=== PATIENT | female | born 1965 | race Caucasian/White ===

== ENCOUNTER 2016-09-01 13:54 | Emergency (ER) | payer MEDICAID ==
[2016-09-01 15:04] VITALS: BP 111/67
--- NOTE | 2016-09-01 15:37 | EDM.PDOC ---
ED HPI Trauma - General Chief Complaint: Upper Extremity Injury/Pain Stated Complaint: [id number] SHOULDER PAIN AND SIDE CHEST SINCE CHIR Time Seen by Provider: 09/01/16 15:37 Source: Reports: Patient, RN, RN notes reviewed History Limitations: Reports: No limitations - History of Present Illness INITIAL COMMENTS - FREE TEXT/NARRATIVE: Complaining of pain to right ribs/chest wall that began 08/24/16 when her chiropractor "popped" her right shoulder. Pain is worse with deep breath and some motion. Right shoulder abduction also increased pain. Denies cough, SOB, fever or chills. Occurred Where: other Severity: moderate Pain/Injury Location: Reports: chest Associated Symptoms: Reports: no other symptoms Allergies/ADRs: Allergies codeine Allergy (Verified 09/01/16 15:06) Cannot Remember Home Medications: Ambulatory Orders Acetaminophen [Tylenol] 650 mg PO BID 09/01/16 [Confirmed 09/01/16] Past Medical History - Past Health History Medical/Surgical History: Denies Medical/Surgical History HEENT History: 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 Cardiovascular History: 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 Respiratory History: 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 Gastrointestinal History: 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 Genitourinary History: Reports: Renal calculus 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: 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 Musculoskeletal History: 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 Neurological History: 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 Psychiatric History: 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 Endocrine/Metabolic History: 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 Hematologic History: 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 Immunologic History: 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 Oncologic (Cancer) History: 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 Dermatologic History: 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 - Infectious Disease History Infectious Disease History: 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 - Past Surgical History Head Surgeries/Procedures: 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 Social & Family History - Family History Family Medical History: Noncontributory - Tobacco Use Smoking Status *Q: Current Every Day Smoker Years of Tobacco use: 20 Packs/Tins Daily: 0.1 Used Tobacco, but Quit: No Month Tobacco Last Used: october Second Hand Smoke Exposure: Yes - Caffeine Use Caffeine Use: Reports: Coffee, Soda, Tea - Alcohol Use Days Per Week of Alcohol Use: 0 - Recreational Drug Use Recreational Drug Use: No - Living Situation & Occupation Living situation: Reports: with family Occupation: employed Review of Systems - Review of Systems Review Of Systems: ROS reveals no pertinent complaints other than HPI. Trauma Exam - Physical Exam Exam: See Below Exam Limited By: No limitations General Appearance: Reports: alert, WD/WN, no apparent distress Neck: Reports: full range of motion Respiratory Exam: Reports: other (decreased breathsounds in bilateral bases. Tender at right anterior lateral mid-ribs. No visibble sweling or bruising. 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 Departure - Departure Time of Disposition: 16:20 Disposition: Home, Self-Care 01 Condition: good Clinical Impression: Costochondritis Chest wall injury Qualifiers: Encounter type: initial encounter Qualified Code(s): S29.9XXA - Unspecified injury of thorax, initial encounter Instructions: Costochondritis, [id number] Forms: ED Department Discharge Additional Instructions: Tramadol 50mg. Naprosyn 500mg. Activity as tolerated. Follow up in clinic in 3 days, if not improving.
--- NOTE | 2016-09-01 16:13 | CR ---
Clinical history: 51-year-old female right chest wall and rib pain (injury). Interpretation: Subtle deformity lower lateral right hemithorax was evident back on 23 August 2014. Mild thoracolumbar scoliosis. No sign of pathologic skeletal lesion, acute right rib fracture, underlying lung contusion, atelecta sis or dependent pleural effusion on the right. No pneumothorax.
== END 2016-09-01 16:30 | disposition home or self-care (01) ==
LOC: DL.ED 13:54
DX: S29.9XXA Unspecified injury of thorax, initial encounter (principal); M94.0 Chondrocostal junction syndrome [Tietze]; F17.210 Nicotine dependence, cigarettes, uncomplicated; Z88.5 Allergy status to narcotic agent; X58.XXXA Exposure to other specified factors, initial encounter
CPT/HCPCS: 71100-RT; 99284

== ENCOUNTER 2017-05-30 18:08 | Emergency (ER) | payer MEDICAID ==
[2017-05-30] MEDS ORDERED: GI Cocktail Oral Solution 30 ML PO ONE (18:09)
[2017-05-30 18:23] VITALS: BP 127/75
[2017-05-30] MEDS ORDERED: Sodium Chloride 0.9% 10 ML Syringe FLUSH PRN (18:29)
[2017-05-30] MEDS ORDERED: Sodium Chloride 0.9% 1,000 ML IV ONE (18:29)
[2017-05-30] MEDS ORDERED: Ondansetron 4 MG/2 ML SDV IV ONE (18:29)
--- NOTE | 2017-05-30 18:34 | EDM.PDOC ---
<Shantelle Soto - Last Filed: 05/30/17 18:29> ED HPI GENERAL MEDICAL PROBLEM - General Chief Complaint: General Stated Complaint: VOMITING Time Seen by Provider: 05/30/17 18:24 Source of Information: Reports: Patient, RN, RN Notes Reviewed History Limitations: Reports: No Limitations - History of Present Illness INITIAL COMMENTS - FREE TEXT/NARRATIVE: Patient presents to the ER with complaint of vomiting white foam for 2 days. Has tried saltines, water, sprite--not able to keep down. She has had chills and runny nose. No fevers, diarrhea, chest pain, shortness of breath and cough. Duration: Constant Location: Reports: Abdomen Quality: Reports: Ache Severity: Moderate Improves with: 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 Worsens with: 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 Associated Symptoms: Reports: No Other Symptoms Abdomen Pain Score (Numeric/FACES): 3 - Related Data Allergies Allergy/AdvReac Type Severity Reaction Status Date / Time codeine Allergy Drowsiness Verified 05/30/17 18:14 Home Meds: Home Meds Acetaminophen [Tylenol] 650 mg PO BID 09/01/16 [History] Past Medical History - Past Health History Medical/Surgical History: Denies Medical/Surgical History HEENT History: 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 Cardiovascular History: 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 Respiratory History: 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 Gastrointestinal History: 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 Genitourinary History: Reports: Renal Calculus 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 Musculoskeletal History: Reports: Back Pain, Chronic Neurological History: 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 Psychiatric History: 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 Endocrine/Metabolic History: 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 Hematologic History: 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 Immunologic History: 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 Oncologic (Cancer) History: 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 Dermatologic History: 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 - Infectious Disease History Infectious Disease History: 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 - Past Surgical History Head Surgeries/Procedures: 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 Social & Family History - Family History Family Medical History: Noncontributory - Tobacco Use Smoking Status *Q: Current Every Day Smoker Years of Tobacco use: 30 Packs/Tins Daily: 0.5 Used Tobacco, but Quit: No Month Tobacco Last Used: october Second Hand Smoke Exposure: Yes - Caffeine Use Caffeine Use: Reports: Soda - Alcohol Use Days Per Week of Alcohol Use: 0 - Recreational Drug Use Recreational Drug Use: No - Living Situation & Occupation Living situation: Reports: with Family Occupation: Employed ED ROS GENERAL - Review of Systems Review Of Systems: ROS reveals no pertinent complaints other than HPI. ED EXAM, GENERAL - Physical Exam Exam: See Below Exam Limited By: No Limitations General Appearance: Other (pale) Eye Exam: Bilateral Eye: Normal Inspection Ears: Normal External Exam, Normal Canal, Hearing Grossly Normal, Normal TMs Nose: Normal Inspection, Normal Mucosa, No Blood Throat/Mouth: Normal Inspection, Normal Lips, Normal Teeth, Normal Gums, Normal Oropharynx, Normal Voice, No Airway Compromise Head: Atraumatic, Normocephalic Neck: Normal Inspection, Supple, Non-Tender, Full Range of Motion Respiratory/Chest: Other (lung sounds diminished) Cardiovascular: Normal Peripheral Pulses, Regular Rate, Rhythm, No Edema, No Gallop, No JVD, No Murmur, No Rub GI/Abdominal: Other (epigastric tenderness) (Female) Exam: Deferred Rectal (Female) Exam: Deferred Back Exam: Normal Inspection, Full Range of Motion, NT Extremities: Normal Inspection, Normal Range of Motion, Non-Tender, Normal Capillary Refill, No Pedal Edema Neurological: Alert, Oriented, CN II-XII Intact, Normal Cognition, Normal Gait, Normal Reflexes, No Motor/Sensory Deficits Psychiatric: Normal Affect, Normal Mood Skin Exam: Other (pale) Lymphatic: No Adenopathy Course - Vital Signs Last Recorded V/S: Last Vital Signs Temp 36.7 C 05/30/17 18:16 Pulse 98 05/30/17 18:16 Resp 18 05/30/17 18:16 BP 127/75 05/30/17 18:16 Pulse Ox 100 05/30/17 18:16 - Orders/Labs/Meds Orders: Active Orders 24 hr Category Date Time Status Peripheral IV Care [RC] . DIRECTED Care 05/30/17 18:29 Active Sodium Chloride 0.9% [Saline Flush] Med 05/30/17 18:29 Active 10 ml FLUSH ASDIRECTED PRN Peripheral IV Insertion Adult [OM.PC] Stat Oth 05/30/17 18:29 Ordered Medication Orders Sodium Chloride (Saline Flush) 10 ml FLUSH ASDIRECTED PRN PRN Reason: Keep Vein Open Last Admin: 05/30/17 18:37 Dose: 10 ml Labs: Laboratory Tests 05/30/17 05/30/17 05/30/17 Range/Units 18:55 18:55 18:55 WBC 10.2 H (5.0-10.0) 10^3/uL RBC 4.29 (4.2-5.4) 10^6/uL Hgb 13.2 (12.0-16.0) g/dL Hct 40.4 (37.0-47.0) % MCV 94.2 (80-100) fL MCH 30.8 (27.0-34.0) pg MCHC 32.7 L (33.0-35.0) g/dL Plt Count 309 (150-450) 10^3/uL Neut % (Auto) 62.3 (42.2-75.2) % Lymph % (Auto) 28.2 (20.5-50.1) % [place] % (Auto) 7.8 (2-8) % Eos % (Auto) 1.3 (1.0-3.0) % Baso % (Auto) 0.4 (0.0-1.0) % Sodium 141 (135-145) mmol/L Potassium 3.8 (3.6-5.0) mmol/L Chloride 106 (101-111) mmol/L Carbon Dioxide 24.0 (21.0-31.0) mmol/L Anion Gap 14.8 BUN 20 H (7-18) mg/dL Creatinine 0.5 L (0.6-1.3) mg/dL Est Cr Clr Drug Dosing 122.52 mL/min Estimated GFR (MDRD) > 60 BUN/Creatinine Ratio 40.00 Glucose 161 H (74-105) mg/dL Lactic Acid 2.3 H (0.5-2.2) mmol/L Calcium 9.4 (8.4-10.2) mg/dl Total Bilirubin 0.7 (0.2-1.0) mg/dL AST 24 (10-42) IU/L ALT 20 (10-60) IU/L Alkaline Phosphatase 70 (42-121) IU/L Total Protein 7.7 (6.7-8.2) g/dl Albumin 4.2 (3.2-5.5) g/dl Globulin 3.5 Albumin/Globulin Ratio 1.20 Amylase 125 H (28-100) U/L Lipase 22 (22-51) U/L Meds: Medications Generic Name Dose Route Start Last Admin Trade Name Freq PRN Reason Stop Dose Admin Sodium Chloride 10 ml 05/30/17 18:29 05/30/17 18:37 Saline Flush FLUSH 10 ml ASDIRECTED PRN Administration Keep Vein Open Discontinued Medications Generic Name Dose Route Start Last Admin Trade Name Petra PRN Reason Stop Dose Admin Sodium Chloride 1,000 mls @ 999 mls/hr 05/30/17 18:29 05/30/17 18:36 Normal Saline IV 05/30/17 19:29 999 mls/hr .BOLUS ONE Administration Ondansetron HCl 4 mg 05/30/17 18:29 05/30/17 18:36 Zofran IV 05/30/17 18:30 4 mg ONETIME ONE Administration Pantoprazole Sodium 40 mg 05/30/17 19:55 05/30/17 20:10 Protonix Iv IVPUSH 05/30/17 19:56 40 mg ONETIME ONE Administration Departure - Departure Disposition: Against Medical Advice 07 Clinical Impression: Esophagitis Barretts esophagus Qualifiers: 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 05/30/17 20:56 re-exam; unable to swallow water since it won't go all the way down it gets stuck in lower oesophagus and comes back up. GI didn't get all the way down either. 05/30/17 21:[address] Covarrubias @ who kindly accepted pt but pt changed her mind and wants to leave AM but would like some GI cocktail to go. pt states has to take daughter to [place] for kidney transplant and nobody can care for her. advised pt to return if things get worse. Departure - Departure Time of Disposition: 21:23 Condition: Good
[2017-05-30 19:36] LABS: ANION GAP 14.8; CHLORIDE,CL 106 mmol/L (101-111); SODIUM,NA 141 mmol/L (135-145)
[2017-05-30] MEDS ORDERED: Pantoprazole 40 MG Vial IVPUSH ONE (19:55)
[2017-05-30] MEDS ORDERED: GI Cocktail Oral Solution 30 ML ONE (21:21)
== END 2017-05-30 21:27 | disposition left against medical advice (07) ==
LOC: DL.ED 18:08
DX: K22.719 Barrett's esophagus with dysplasia, unspecified (principal); K20.9 Esophagitis, unspecified; F17.210 Nicotine dependence, cigarettes, uncomplicated; Z88.5 Allergy status to narcotic agent
CPT/HCPCS: 36415; 74176; 80053; 82150; 83605; 83690; 85025; 99284; C9113; J2405; J7030; J7050; 96361; 96374; A9270-GY

== ENCOUNTER 2017-10-31 19:39 | Emergency (ER) | payer MEDICAID ==
[2017-10-31 21:14] VITALS: BP 119/79
--- NOTE | 2017-10-31 21:22 | EDM.PDOC ---
ED HPI GENERAL MEDICAL PROBLEM - General Chief Complaint: Chest Pain Stated Complaint: RT SIDE,?CRACKED RIB Time Seen by Provider: 10/31/17 20:25 Source of Information: Reports: Patient History Limitations: Reports: No Limitations - History of Present Illness INITIAL COMMENTS - FREE TEXT/NARRATIVE: right lower rib pain, states hx 2 weeks ago told had cracked ribat clinic. Tonight reaching over arm of couch and felt pop in right lower rib. Discomfort with movement. No difficultly breathing. Right Thoracic Pain Score (Numeric/FACES): 7 - Related Data Allergies Allergy/AdvReac Type Severity Reaction Status Date / Time codeine Allergy Drowsiness Verified 10/31/17 20:07 Home Meds: Home Meds . 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 Musculoskeletal History: Reports: Back Pain, Chronic Neurological History: 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 Psychiatric History: 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 Endocrine/Metabolic History: 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 Hematologic History: 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 Immunologic History: 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 Oncologic (Cancer) History: 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 Dermatologic History: 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 - Infectious Disease History Infectious Disease History: 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 - Past Surgical History Head Surgeries/Procedures: 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 Social & Family History - Family History Family Medical History: Noncontributory - Tobacco Use Smoking Status *Q: Current Every Day Smoker Years of Tobacco use: 39 Packs/Tins Daily: 0.2 Second Hand Smoke Exposure: Yes - Caffeine Use Caffeine Use: Reports: Soda - Recreational Drug Use Recreational Drug Use: No - Living Situation & Occupation Living situation: Reports: with Family Occupation: Employed ED ROS GENERAL - Review of Systems Review Of Systems: ROS reveals no pertinent complaints other than HPI. ED EXAM, GENERAL - Physical Exam Exam: See Below Exam Limited By: No Limitations General Appearance: Alert, No Apparent Distress Eye Exam: Bilateral Eye: EOMI Ears: Normal External Exam Nose: Normal Inspection Throat/Mouth: Normal Inspection Head: Atraumatic, Normocephalic Respiratory/Chest: No Respiratory Distress, Lungs Clear, Normal Breath Sounds, Other (mild tenderness right lower ribs mid axillary line, no bruising or swelling to area). No: Respiratory Distress, Crackles, Rales, Rhonchi, Wheezing Cardiovascular: Normal Peripheral Pulses, Regular Rate, Rhythm GI/Abdominal: Soft Back Exam: Normal Inspection, Paraspinal Tenderness (mid thoracic) Extremities: Normal Range of Motion Neurological: Alert, Oriented, Normal Cognition Psychiatric: Normal Affect Skin Exam: Warm, Dry, Intact, Normal Color Course - Vital Signs Last Recorded V/S: Last Vital Signs Temp 99.1 F 10/31/17 20:02 Pulse 90 10/31/17 21:13 Resp 16 10/31/17 21:13 BP 119/79 10/31/17 21:13 Pulse Ox 98 10/31/17 21:13 Departure - Departure Time of Disposition: 21:20 Disposition: Home, Self-Care 01 Condition: Good Clinical Impression: Rib pain on right side - Discharge Information Instructions: Rib Contusion Referrals: Katya Hooks MD [Primary Care Provider] - Forms: ED Department Discharge Additional Instructions: splint area with cough or sneeze deep breathing exercises every hour while awake alternate tylenol 650mg and ibuprofen 600mg every 4 hours as needed for discomfort
== END 2017-10-31 21:27 | disposition home or self-care (01) ==
LOC: DL.ED 19:39
DX: R07.81 Pleurodynia (principal); F17.210 Nicotine dependence, cigarettes, uncomplicated; Z88.5 Allergy status to narcotic agent
CPT/HCPCS: 71101-RT; 99283

== ENCOUNTER 2019-07-01 12:23 | Emergency (ER) | payer SELFPAY ==
[2019-07-01 13:07] VITALS: BP 111/69; PULSE 83
--- NOTE | 2019-07-01 14:03 | EDM.PDOC ---
Scribed by So White 07/01/19 [id number] for Shakir Bernal MD ED HPI GENERAL MEDICAL PROBLEM - General Chief Complaint: Upper Extremity Injury/Pain Stated Complaint: LEFT SIDE PAINS,COUGHING Time Seen by Provider: 07/01/19 13:15 Source of Information: Reports: Patient, RN, RN Notes Reviewed History Limitations: Reports: No Limitations - History of Present Illness INITIAL COMMENTS - FREE TEXT/NARRATIVE: Patient presents to ER with pain to left chest wall. She has had a cough for 2 months. Saw doctor for cough and cold and was treated with 2 antibiotics over the span of a month. She denies fever or chills. Admits to wheezing, and occasional brown sputum production. She quit smoking 1 month ago. 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 Onset: Gradual Duration: Getting Worse Quality: Reports: Ache Severity: Mild Improves with: 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 Worsens with: 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 Associated Symptoms: Reports: No Other Symptoms Chest Pain Score (Numeric/FACES): 8 - Related Data Allergies Allergy/AdvReac Type Severity Reaction Status Date / Time codeine Allergy Drowsiness Verified 01/25/18 06:28 peach flavor Allergy Hives Uncoded 01/25/18 06:28 Home Meds: Home Meds Acetaminophen 500 - 1,000 mg PO QID PRN 01/25/18 [History] Albuterol [Proventil HFA] 1 - 2 puff INH Q6H PRN 01/25/18 [History] Alendronate Sodium [Fosamax] 70 mg PO Q7D 01/25/18 [History] Glimepiride [Amaryl] 2 mg PO ASDIRECTED 01/25/18 [History] Ibuprofen [Ibu] 800 mg PO Q8H PRN 01/25/18 [History] atorvaSTATin [Lipitor] 20 mg PO DAILY 01/25/18 [History] buPROPion [buPROPion XL] 150 mg PO DAILY 01/25/18 [History] Past Medical History - Past Health History Medical/Surgical History: Denies Medical/Surgical History HEENT History: Reports: Hard of Hearing Cardiovascular History: Reports: High Cholesterol Respiratory History: 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 Gastrointestinal History: 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 Genitourinary History: Reports: Renal Calculus, Urinary Incontinence 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 Musculoskeletal History: Reports: Arthritis, Back Pain, Chronic, Osteoporosis Neurological History: 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 Psychiatric History: Reports: Other (See Below) Other Psychiatric History: TOBACCO HABITUATION Endocrine/Metabolic History: Reports: Diabetes, Type II Hematologic History: 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 Immunologic History: 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 Oncologic (Cancer) History: 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 Dermatologic History: 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 - Infectious Disease History Infectious Disease History: 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 - Past Surgical History Head Surgeries/Procedures: 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 HEENT Surgical History: Reports: Myringotomy w Tube(s) Female Surgical History: Reports: D&C Social & Family History - Family History Family Medical History: Noncontributory - Tobacco Use Smoking Status *Q: Former Smoker Used Tobacco, but Quit: Yes Month/Year Tobacco Last Used: 05/2019 - Caffeine Use Caffeine Use: Reports: Coffee - Recreational Drug Use Recreational Drug Use: No - Living Situation & Occupation Living situation: Reports: with Family Occupation: Employed ED ROS GENERAL - Review of Systems Review Of Systems: Comprehensive ROS is negative, except as noted in HPI. ED EXAM, GENERAL - Physical Exam Exam: See Below Exam Limited By: No Limitations General Appearance: Alert, WD/WN, No Apparent Distress Nose: Normal Inspection Throat/Mouth: Normal Inspection Head: Atraumatic, Normocephalic Neck: Normal Inspection, Supple, Non-Tender, Full Range of Motion. No: Lymphadenopathy (L), Lymphadenopathy (R) Respiratory/Chest: No Respiratory Distress, No Accessory Muscle Use, Decreased Breath Sounds, Wheezing (mild), Other (Left lateral mid-to lower chest wall tenderness with no visible bruising, swelling, or deformity. No palpable crepitus.) Cardiovascular: Regular Rate, Rhythm GI/Abdominal: Normal Bowel Sounds, Soft, Non-Tender Back Exam: Normal Inspection, Full Range of Motion Extremities: Normal Inspection, No Pedal Edema Neurological: Alert, Oriented, No Motor/Sensory Deficits Psychiatric: Normal Mood Skin Exam: Warm, Dry, Intact, Normal Color, No Rash Course - Vital Signs Last Recorded V/S: Last Vital Signs Temp 99.3 F 07/01/19 13:05 Pulse 83 07/01/19 13:05 Resp 20 07/01/19 13:05 BP 111/69 07/01/19 13:05 Pulse Ox 97 07/01/19 13:05 - Orders/Labs/Meds Orders: Active Orders 24 hr Category Date Time Status Chest 2V [CR] Stat Exams 07/01/19 13:16 Taken Ribs 2V wo Chest Lt [CR] Urgent Exams 07/01/19 13:16 Taken Labs: Laboratory Tests 07/01/19 07/01/19 Range/Units 13:23 13:23 WBC 12.3 H (5.0-10.0) 10^3/uL RBC 4.33 (4.2-5.4) 10^6/uL Hgb 13.7 (12.0-16.0) g/dL Hct 41.0 (37.0-47.0) % MCV 94.7 (80-100) fL MCH 31.6 (27.0-34.0) pg MCHC 33.4 (33.0-35.0) g/dL Plt Count 290 (150-450) 10^3/uL Neut % (Auto) 75.0 (42.2-75.2) % Lymph % (Auto) 16.3 L (20.5-50.1) % [place] % (Auto) 7.2 (2-8) % Eos % (Auto) 1.3 (1.0-3.0) % Baso % (Auto) 0.2 (0.0-1.0) % C-Reactive Protein 2.6 H (0.0-1.3) mg/dL Departure - Departure Time of Disposition: 13:55 Disposition: Home, Self-Care 01 Condition: Good Clinical Impression: Chest wall pain, Pleurisy without effusion - Discharge Information *PRESCRIPTION DRUG MONITORING PROGRAM REVIEWED*: No *COPY OF PRESCRIPTION DRUG MONITORING REPORT IN PATIENT RAE: No Instructions: Chest Wall Pain, [id number], Pleurisy Forms: ED Department Discharge Additional Instructions: Rx: [place] (Hydrocodone) 5mg/325mg *Do not drive while under the influence of this medication. Use a stool softener while taking this medication. Rx: Decadron (Dexamethasone) 4mg Rx: Albuterol Inhaler Follow up in clinic in 1 week if not improving as expected. Sepsis Event Note - Evaluation Sepsis Screening Result: No Definite Risk - Focused Exam Vital Signs: Vital Signs Temp Pulse Resp BP Pulse Ox 07/01/19 13:05 99.3 F 83 20 111/69 97 Date Exam was Performed: 07/01/19 Time Exam was Performed: 13:58 - My Orders Last 24 Hours: My Active Orders 07/01/19 13:16 Chest 2V [CR] Stat Ribs 2V wo Chest Lt [CR] Urgent - Assessment/Plan Last 24 Hours: My Active Orders 07/01/19 13:16 Chest 2V [CR] Stat Ribs 2V wo Chest Lt [CR] Urgent I have read and agree with the documentation that has been completed regarding this visit. By signing this record, I attest that the documentation was completed in my physical presence and is an accurate record of the encounter.
== END 2019-07-01 14:02 | disposition home or self-care (01) ==
LOC: DL.ED 12:23
DX: R09.1 Pleurisy (principal); E78.00 Pure hypercholesterolemia, unspecified; E11.9 Type 2 diabetes mellitus without complications; Z88.5 Allergy status to narcotic agent; Z91.048 Other nonmedicinal substance allergy status; Z79.899 Other long term (current) drug therapy; Z79.84 Long term (current) use of oral hypoglycemic drugs; Z87.891 Personal history of nicotine dependence
CPT/HCPCS: 36415; 71046; 71100-LT; 85025; 86140; 99283; 99285-25

== ENCOUNTER 2019-09-01 12:49 | Emergency (ER) | payer OTHER ==
--- NOTE | 2019-09-01 12:39 | EDM.PDOC ---
ED HPI GENERAL MEDICAL PROBLEM - General Chief Complaint: Lower Extremity Injury/Pain Stated Complaint: ANKLE PAIN Time Seen by Provider: 09/01/19 12:55 Source of Information: Reports: Patient, EMS, RN, RN Notes Reviewed History Limitations: Reports: No Limitations - History of Present Illness INITIAL COMMENTS - FREE TEXT/NARRATIVE: Pt arrives from home by ambulance with c/o right ankle and right knee pain sustained from a ground level fall at work yesterday. Denies any other injury. Pt rates the pain 8/10. Nothing alleviates the pain. Ankle ROM or attempted wt bearing aggravates the pain. Onset: Sudden Onset Date: 08/31/19 Duration: Constant Location: Reports: Lower Extremity, Right Quality: Reports: Ache Severity: Severe Context: Reports: Other (Fall) Associated Symptoms: Reports: No Other Symptoms Right Ankle Pain Score (Numeric/FACES): 10 - Related Data Allergies Allergy/AdvReac Type Severity Reaction Status Date / Time codeine Allergy Drowsiness Verified 09/01/19 12:53 peach flavor Allergy Hives Uncoded 01/25/18 06:28 Home Meds: Home Meds Acetaminophen 500 - 1,000 mg PO QID PRN 01/25/18 [History] Albuterol [Proventil HFA] 1 - 2 puff INH Q6H PRN 01/25/18 [History] Alendronate Sodium [Fosamax] 70 mg PO Q7D 01/25/18 [History] Glimepiride [Amaryl] 2 mg PO ASDIRECTED 01/25/18 [History] Ibuprofen [Ibu] 800 mg PO Q8H PRN 01/25/18 [History] atorvaSTATin [Lipitor] 20 mg PO DAILY 01/25/18 [History] buPROPion [buPROPion XL] 150 mg PO DAILY 01/25/18 [History] Past Medical History - Past Health History Medical/Surgical History: Denies Medical/Surgical History HEENT History: Reports: Hard of Hearing Cardiovascular History: Reports: High Cholesterol Respiratory History: 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 Gastrointestinal History: 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 Genitourinary History: Reports: Renal Calculus, Urinary Incontinence BALLET DANCER History: 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 Musculoskeletal History: Reports: Arthritis, Back Pain, Chronic, Osteoporosis Neurological History: 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 Psychiatric History: Reports: Other (See Below) Other Psychiatric History: TOBACCO HABITUATION Endocrine/Metabolic History: Reports: Diabetes, Type II Hematologic History: 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 Immunologic History: 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 Oncologic (Cancer) History: 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 Dermatologic History: 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 - Infectious Disease History Infectious Disease History: 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 - Past Surgical History Head Surgeries/Procedures: 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 HEENT Surgical History: Reports: Myringotomy w Tube(s) Female Surgical History: Reports: D&C Social & Family History - Family History Family Medical History: Noncontributory - Tobacco Use Smoking Status *Q: Former Smoker Tobacco Use Within Last Twelve Months: Cigarettes - Caffeine Use Caffeine Use: Reports: Coffee - Living Situation & Occupation Living situation: Reports: with Family Occupation: Employed Review of Systems - Review of Systems Review Of Systems: Comprehensive ROS is negative, except as noted in HPI. ED EXAM, GENERAL - Physical Exam Exam: See Below Exam Limited By: No Limitations General Appearance: Alert, No Apparent Distress Head: Atraumatic, Normocephalic Neck: Normal Inspection, Non-Tender, Full Range of Motion Respiratory/Chest: No Respiratory Distress Cardiovascular: Normal Peripheral Pulses Back Exam: Normal Inspection, Full Range of Motion Extremities: No Pedal Edema, Normal Capillary Refill, Joint Swelling (Mild Rt ankle lateral soft tissue swelling and bruising.), Limited Range of Motion (Rt knee tender, faint anterior bruising, ROM limited due pain but mechanically intact). No: Ambika's Sign, Increased Warmth, Redness Neurological: Alert, Oriented, No Motor/Sensory Deficits Psychiatric: Normal Mood Skin Exam: Warm, Dry, Intact ED TRAUMA EXTREMITY PROCEDURES - Splinting Right Lower Extremity Splint Site: Rt ankle Pre-Procedure NV Status: Normal Post-Procedure NV Status: Normal Splint Material: Boot Orthotic Applied & Form Fitted By: Nurse Provider Post-Splint Application NV Check: NV Status Normal, Good Position Complications: No Course - Vital Signs Last Recorded V/S: Last Vital Signs Temp 98.9 F 09/01/19 12:50 Pulse 78 09/01/19 12:50 Resp 14 09/01/19 12:50 BP 96/77 09/01/19 12:50 Pulse Ox 99 09/01/19 12:50 - Orders/Labs/Meds Orders: Active Orders 24 hr Category Date Time Status Brian Bandage [RC] ONETIME Care 09/01/19 13:14 Ordered Ankle Min 3V Rt [CR] Urgent Exams 09/01/19 12:33 Taken DME for Discharge [COMM] Routine Oth 09/01/19 13:15 Ordered DME for Discharge [COMM] Routine Oth 09/01/19 13:15 Ordered - Radiology Interpretation Free Text/Narrative:: XR Right Ankle: no acute fractures, see Rad. report. XR Right Knee: no acute fracture, see Rad. report. Departure - Departure Time of Disposition: 13:23 Disposition: Home, Self-Care 01 Condition: Good Clinical Impression: Sprain of right ankle Qualifiers: Encounter type: initial encounter Involved ligament of ankle: unspecified ligament Qualified Code(s): S93.401A - Sprain of unspecified ligament of right ankle, initial encounter Sprain of right knee Qualifiers: Encounter type: initial encounter Involved ligament of knee: unspecified ligament Qualified Code(s): S83.91XA - Sprain of unspecified site of right knee , initial encounter - Discharge Information *PRESCRIPTION DRUG MONITORING PROGRAM REVIEWED*: Not Applicable *COPY OF PRESCRIPTION DRUG MONITORING REPORT IN PATIENT RAE: Not Applicable Instructions: Ankle Sprain, [id number], Knee Sprain, Adult, [id number], How to Use Cold Therapy, Crutch Use, Adult, [id number] Forms: ED Department Discharge Additional Instructions: Rest, ice packs, and elevate right knee and ankle to reduce pain and swelling. Use BRIAN wrap to knee, orthopedic boot for ankle, and crutches as needed for 5 to 7 days. May return to work in 3 days with use of boot and crutches with limited weight bearing on right foot. Return to unrestricted work in 7 to 10 days. Use Tylenol and/or Ibuprofen as needed for pain. Follow directions on label for dosing and precautions. Follow up in clinic in 7 to 10 days if not improving as expected. Sepsis Event Note - Focused Exam Vital Signs: Vital Signs Temp Pulse Resp BP Pulse Ox 09/01/19 12:50 98.9 F 78 14 96/77 99 Date Exam was Performed: 09/01/19 Time Exam was Performed: 13:15 - My Orders Last 24 Hours: My Active Orders 09/01/19 12:33 Ankle Min 3V Rt [CR] Urgent 09/01/19 13:14 Brian Bandage [RC] ONETIME 09/01/19 13:15 DME for Discharge [COMM] Routine DME for Discharge [COMM] Routine - Assessment/Plan Last 24 Hours: My Active Orders 09/01/19 12:33 Ankle Min 3V Rt [CR] Urgent 09/01/19 13:14 Brian Bandage [RC] ONETIME 09/01/19 13:15 DME for Discharge [COMM] Routine DME for Discharge [COMM] Routine
[2019-09-01 12:53] VITALS: BP 96/77; PULSE 78
--- NOTE | 2019-09-01 13:15 | CR ---
EXAMINATION: Knee 3V Rt SEX: Female AGE: 54 years CLINICAL HISTORY: 54-year-old female injured Fall. Rt knee pain. INTERPRETATION: 1. Mild osteopenia consistent with age and gender. 2. Early arthritic change (bony eburnation). 3. No joint effusion, acute right knee fracture, dislocation or radiopaque loose joint body. 4. No foreign bodies. CONCLUSION: No fracture or dislocation, right knee.
--- NOTE | 2019-09-01 13:17 | CR ---
EXAMINATION: Ankle Min 3V Rt SEX: Female AGE: 54 years CLINICAL HISTORY: 54-year-old female Rt ankle injury (ground level fall). INTERPRETATION: 1. Asymmetric pronounced soft tissue swelling over the lateral malleolus. (Small ankle joint effusion) 2. Mild osteopenia. Pes cavus and hammertoe deformity. 3. *No sign of underlying ankle fracture or dislocation. 4. Tiny heel spur at insertion Achilles tendon posteriorly on the os calcis. CONCLUSION: Severe right ankle sprain. No fracture or dislocation.
== END 2019-09-01 13:36 | disposition home or self-care (01) ==
LOC: DL.ED 12:49
DX: S93.401A Sprain of unspecified ligament of right ankle, initial encounter (principal); Z88.5 Allergy status to narcotic agent; Z91.09 Other allergy status, other than to drugs and biological substances; Y99.0 Civilian activity done for income or pay; Z79.899 Other long term (current) drug therapy; E11.9 Type 2 diabetes mellitus without complications; Z79.84 Long term (current) use of oral hypoglycemic drugs; Z87.891 Personal history of nicotine dependence; W18.30XA Fall on same level, unspecified, initial encounter; E78.00 Pure hypercholesterolemia, unspecified
CPT/HCPCS: 73562-RT; 73610-RT; 99284

== ENCOUNTER 2021-11-19 07:04 | Emergency (ER) | payer MEDICAID, OTHER ==
[2021-11-19 07:18] VITALS: PULSE 67
[2021-11-19] MEDS: Orphenadrine 60 MG/2 ML Inj IM ONE (08:06)
[2021-11-19] MEDS: Ketorolac 30 MG/ML SDV IM ONE (08:07)
== END 2021-11-19 10:19 | disposition home or self-care (01) ==
LOC: DL.ED 07:04
DX: M54.6 Pain in thoracic spine (principal); E78.00 Pure hypercholesterolemia, unspecified; E11.9 Type 2 diabetes mellitus without complications; Z88.5 Allergy status to narcotic agent; Z91.048 Other nonmedicinal substance allergy status; Z79.899 Other long term (current) drug therapy
CPT/HCPCS: 72070; 81001; 96372; 99283; 99284; J1885; J2360

== ENCOUNTER 2021-12-05 14:40 | Emergency (ER) | payer MEDICAID ==
[2021-12-05] MEDS ORDERED: Acetaminophen/HYDROcodone 325-10 MG Tab PO ONE (14:41)
[2021-12-05] MEDS ORDERED: Ondansetron 4 MG Tab.DIS PO ONE (14:41)
[2021-12-05] MEDS ORDERED: Sodium Chloride 0.9% 10 ML Syringe FLUSH PRN (15:17)
[2021-12-05] MEDS ORDERED: Ondansetron 4 MG/2 ML SDV IVPUSH ONE (15:20)
[2021-12-05] MEDS ORDERED: Sodium Chloride 0.9% 1,000 ML IV ONE ×2 (15:20→16:09)
[2021-12-05] MEDS ORDERED: Acetaminophen 500 MG Tab PO ONE (15:24)
[2021-12-05 15:59] LABS: ANION GAP 18.8 mEq/L (7-13)
[2021-12-05] MEDS ORDERED: Iopamidol 612 MG/ML 100 ML Bottle IVPUSH ONE (16:08)
[2021-12-05] MEDS ORDERED: Acetaminophen/HYDROcodone 325-10 MG Tab ONE (19:13)
[2021-12-05] MEDS ORDERED: Ondansetron 4 MG Tab.DIS ONE (19:14)
[2021-12-05 19:20] VITALS: BP 128/92; PULSE 77
== END 2021-12-05 19:17 | disposition home or self-care (01) ==
LOC: DL.ED 14:40
DX: S22.060A Wedge compression fracture of T7-T8 vertebra, initial encounter for closed fracture (principal); E78.00 Pure hypercholesterolemia, unspecified; E11.9 Type 2 diabetes mellitus without complications; Z88.5 Allergy status to narcotic agent; Z91.048 Other nonmedicinal substance allergy status; Z79.899 Other long term (current) drug therapy; Z87.891 Personal history of nicotine dependence
CPT/HCPCS: 36415; 74177; 80053; 83605; 83615; 83690; 83735; 84145; 85025; 86140; 96361; 96374; 99284; A9270; J2405; J3490; J7030; Q9967

== ENCOUNTER 2023-08-30 10:40 | Emergency (ER) | payer MEDICAID ==
[2023-08-30] MEDS: Ondansetron 4 MG Tab.DIS PO ONE (11:01)
[2023-08-30] MEDS: Acetaminophen 500 MG Tab PO ONE (11:10)
[2023-08-30] MEDS: Ketorolac 30 MG/ML SDV IM ONE (11:10)
[2023-08-30 11:46] VITALS: BP 114/82; PULSE 62
== END 2023-08-30 12:20 | disposition home or self-care (01) ==
LOC: DL.ED 10:40
DX: S06.0X0A Concussion without loss of consciousness, initial encounter (principal); S63.501A Unspecified sprain of right wrist, initial encounter; S00.03XA Contusion of scalp, initial encounter; S30.0XXA Contusion of lower back and pelvis, initial encounter; E78.00 Pure hypercholesterolemia, unspecified; E11.9 Type 2 diabetes mellitus without complications; Z88.5 Allergy status to narcotic agent; Z91.018 Allergy to other foods; Z88.8 Allergy status to other drugs, medicaments and biological substances; Z79.899 Other long term (current) drug therapy; W18.30XA Fall on same level, unspecified, initial encounter
CPT/HCPCS: 70450; 72220; 73110; 96372; 99283; 99284; A9270; J1885

== ENCOUNTER 2024-03-28 12:27 | Emergency (ER) | payer MEDICAID ==
[2024-03-28 12:41] VITALS: PULSE 75
[2024-03-28] MEDS: Dexamethasone 4 MG/ML SDV IM ONE (13:08)
[2024-03-28 13:27] VITALS: BP 119/73
== END 2024-03-28 13:22 | disposition home or self-care (01) ==
LOC: DL.ED 12:27
DX: M94.0 Chondrocostal junction syndrome [Tietze] (principal); E78.00 Pure hypercholesterolemia, unspecified; E11.9 Type 2 diabetes mellitus without complications; F17.210 Nicotine dependence, cigarettes, uncomplicated; Z79.899 Other long term (current) drug therapy; Z88.5 Allergy status to narcotic agent; Z91.018 Allergy to other foods
CPT/HCPCS: 96372; 99283; J1100